=== PATIENT | female | born 1995 | race African-American/Black ===

== ENCOUNTER 2017-09-30 20:47 | Emergency (ER) | payer SELFPAY ==
[~2017-09-30] VITALS: Ht 172.7 cm; Wt 75.0 kg
[2017-09-30 21:00] VITALS: BP 133/83; PULSE 88; TEMP 97.5
[2017-09-30] MEDS ORDERED: ATARAX 25MG25 MG/TAB PO (21:00)
[2017-09-30] MEDS ORDERED: PREDNISONE20 MG PO (21:17)
== END 2017-09-30 21:24 | disposition home or self-care (01) ==
LOC: COL.ER 20:47
DX: J30.9 Allergic rhinitis, unspecified (principal); F41.9 Anxiety disorder, unspecified; Z98.818 Other dental procedure status

== ENCOUNTER 2019-02-10 02:04 | Emergency (ER) | payer SELFPAY ==
[~2019-02-10] VITALS: Ht 170.2 cm; Wt 104.5 kg
[~2019-02-10 02:04] MED LIST: ATARAX 25MG25 MG/TAB PO; PREDNISONE20 MG PO
[2019-02-10 02:07] VITALS: TEMP 99.1
[2019-02-10 03:38] LABS: COLLECTION METHOD CLEAN CATCH
[2019-02-10 03:39] LABS: BASO % 0.3 % (0.0-2.0); EOS # 0.1 (0.0-0.7); EOS % 0.8 % (0-4.0); HEMATOCRIT 37.5 % (37.0-47.0); LYMPH # 2.2 (1.2-3.4); LYMPH % 18.5 % (20.0-51.0); MEAN CELL VOLUME 84 fl (80.0-100.0); MEAN CORPUSCULAR HEMOGLOBIN 27 pg (27.0-31.0); MEAN CORPUSCULAR HGB CONC 32 g/dl (33.0-37.0); MEAN PLATELET VOLUME 9.3 fl (7.4-10.4); MONO # 0.5 (0.1-0.6); MONO % 4.1 % (1.7-9.3); PLATELET COUNT 373 K/mm3 (130-400); RED BLOOD COUNT 4.46 M/mm3 (4.10-5.30); REDCELL DISTRIBUTION WIDTH-CV 13.8 % (11.5-14.5)
[2019-02-10 03:45] LABS: MUCOUS Present /lpf; PH 5 (5-8); URINE APPEARANCE Hazy; URINE BACTERIA None Seen /hpf; URINE BILIRUBIN Negative (NEGATIVE); URINE BLOOD 2+ (NEGATIVE); URINE COLOR Yellow; URINE GLUCOSE Negative (NEGATIVE); URINE KETONE Negative (NEGATIVE); URINE LEUKOCYTE ESTERASE Trace (NEGATIVE); URINE NITRATE Negative (NEGATIVE); URINE PROTEIN(semi-quant) 1+ (NEGATIVE); URINE RBC >50 /hpf; URINE UROBILINOGEN >=4.0 mg/dL (NEGATIVE)
[2019-02-10 03:50] LABS: ALBUMIN 3.9 gm/dL (3.5-5.0); BILIRUBIN,TOTAL 0.2 mg/dL (0.0-1.0); CREATININE, serum 0.59 (0.52-1.25); POTASSIUM 3.9 mmol/L (3.4-5.0); TOTAL PROTEIN 7.5 gm/dL (6.4-8.2)
[2019-02-10 04:53] LABS: COLLECTION METHOD CATHETER
[2019-02-10 04:59] LABS: MUCOUS Present /lpf; PH 6 (5-8); URINE APPEARANCE Clear; URINE BACTERIA None Seen /hpf; URINE BILIRUBIN Negative (NEGATIVE); URINE BLOOD Negative (NEGATIVE); URINE COLOR Yellow; URINE GLUCOSE Negative (NEGATIVE); URINE KETONE Negative (NEGATIVE); URINE LEUKOCYTE ESTERASE Negative (NEGATIVE); URINE NITRATE Negative (NEGATIVE); URINE PROTEIN(semi-quant) Negative (NEGATIVE); URINE RBC 0-2 /hpf
[2019-02-10 05:35] VITALS: BP 131/74; PULSE 84
== END 2019-02-10 05:35 | disposition home or self-care (01) ==
LOC: COL.ER 02:04
PROVIDERS: Emergency Medicine
DX: R10.2 Pelvic and perineal pain (principal); Z87.59 Personal history of other complications of pregnancy, childbirth and the puerperium